=== PATIENT | male | born 1985 | race American Indian/Alaskan Native ===

== ENCOUNTER 2016-12-26 08:34 | Emergency (ER) | payer SELFPAY ==
[2016-12-26] MEDS ORDERED: TYLENOL PO ONE (09:11)
[2016-12-26] MEDS ORDERED: BOOSTRIX IM ONE (09:11)
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
[2016-12-26 10:55] VITALS: BP 125/80
== END 2016-12-26 10:55 | disposition home or self-care (01) ==
LOC: ED 08:34
DX: S80.01XA Contusion of right knee, initial encounter (principal); F12.10 Cannabis abuse, uncomplicated; F17.200 Nicotine dependence, unspecified, uncomplicated; V49.49XA Driver injured in collision with other motor vehicles in traffic accident, initial encounter; X58.XXXA Exposure to other specified factors, initial encounter; Y93.9 Activity, unspecified; Y92.9 Unspecified place or not applicable; Y99.9 Unspecified external cause status
CPT/HCPCS: 70450; 71020; 72125; 90471; 90715